=== PATIENT | female | born 1945 | race Caucasian/White ===

== ENCOUNTER 2017-07-12 10:03 | Emergency (ER) | payer MEDICARE ==
[2017-07-12 10:44] LABS: Bilirubin Negative (Negative); Blood, Urine Moderate (Negative); Clarity Slightly Cloudy (Clear); Glucose, Urine (Dipstick) 500 mg/dL (Negative); Leukocyte Moderate (Negative); Nitrite Positive (Negative); Protein, Urine (Dipstick) 100 mg/dL (Neg-Trace); Specific Gravity, Urine 1.015 (1.005-1.030)
[2017-07-12 10:49] LABS: Bacteria/HPF 4+ HPF (None Seen)
[2017-07-12 11:13] LABS: Band 8 % (5-11); Hemoglobin 10.3 g/dL (12.0-16.0); Lymphocytes 14 % (21-51); MDiff Complete? YES; Mean Corpuscular HGB CONC 32.4 g/dL (32.0-36.0); Mean Corpuscular Hemoglobin 29.5 pg (27.0-31.0); Mean Corpuscular Volume 91.2 fl (81.0-99.0); Mean Platelet Volume 6.8 fL (7.4-10.4); Monocytes 7 % (0-10); Neutrophil 71 % (42-75); PLT Morphology Comment Appears Adequate; Platelet Count 242 thou/uL (130-400); Red Blood Cell (RBC) Count 3.49 mill/uL (4.20-5.40); White Blood Cell (WBC) Count 9.8 thou/uL (4.8-10.8)
[2017-07-12 11:16] LABS: ALT (SGPT) 16 U/L (8-55); AST (SGOT) 20 U/L (5-34); Albumin 3.7 g/dL (3.4-4.8); Alkaline Phosphatase 80 U/L (40-150); Anion Gap 15 mmol/L (10-20); BUN (Urea Nitrogen) 9 mg/dL (9.8-20.1); Bilirubin, Total 0.4 mg/dL (0.2-1.2); Calc. Creatinine Clearance 0 mL/min (70-130); Calcium 9.3 mg/dL (7.8-10.44); Carbon Dioxide 26 mmol/L (23-31); Chloride 99 mmol/L (98-107); Estimated GFR-MDRD 60; Globulin 3.7 g/dL (2.4-3.5); Glucose 248 mg/dL (83-110); Lipase 5 U/L (8-78); Potassium 3.4 mmol/L (3.5-5.1); Protein, Total 7.4 g/dL (6.0-8.3); Sodium 137 mmol/L (136-145)
--- NOTE | 2017-07-12 11:23 | RAD ---
SINGLE VIEW OF CHEST: Date: 07/12/17 COMPARISON: 09/11/08. HISTORY: Right upper quadrant abdominal pain. FINDINGS: Single view of the chest shows a normal sized cardiomediastinal silhouette. There is no evidence of consolidation, mass, or pleural effusion. The bones are unremarkable. IMPRESSION: No evidence of acute cardiopulmonary disease. POS: [facility]
--- NOTE | 2017-07-12 11:59 | ULT ---
RIGHT UPPER QUADRANT ULTRASOUND: Date: 07/12/17 PROVIDED CLINICAL HISTORY: Right upper quadrant pain. FINDINGS: Comparison made with study dated 06/12/07. Visualized abdominal aorta, IVC, and pancreas appear normal. The liver demonstrates no mass or intra hepatic biliary ductal dilatation. The common duct is not dilated. The gallbladder demonstrates no s tones or pericholecystic fluid. The gallbladder is upper limits of normal. Sonographic Bah's sign documented as negative. The right kidney demonstrates no hydronephrosis or mass. IMPRESSION: No definite evidence for an acute process. POS: [facility]
[2017-07-12] MEDS ORDERED: Sulfameth/Trimethoprim DS 800-160mg TAB ONE (12:03)
[2017-07-12] MEDS ORDERED: Acetaminophen/Codeine 30-300mg Tablet ONE (12:03)
[2017-07-12] MEDS ORDERED: Ondansetron ODT 4 MG TAB ONE (12:03)
== END 2017-07-12 12:10 | disposition home or self-care (01) ==
LOC: MADERS 10:03
DX: N39.0 Urinary tract infection, site not specified (principal); E11.9 Type 2 diabetes mellitus without complications; Z79.4 Long term (current) use of insulin; Z79.899 Other long term (current) drug therapy
CPT/HCPCS: 71010; 76705; 80053; 81001; 82150; 83605; 83690; 85025; 87077; 87086; 87186; Q0162

== ENCOUNTER 2017-07-13 16:05 | Emergency (ER) | payer MEDICARE, OTHER ==
[2017-07-13] MEDS ORDERED: Mag-Al Plus 1200 MG/1200 MG/120 MG/30 ML UDCUP ONE (17:23)
--- NOTE | 2017-07-13 19:32 | RAD ---
KUB AND UPRIGHT: 07/13/17 HISTORY: Abdominal pain. The bowel gas pattern is nonobstructed. No signs of free air. There are arthritic changes of the spi ne. No renal calculi are seen. PA CHEST: Heart size and mediastinum are within normal limits. The lungs are clear of infiltrative process. IMPRESSION: No acute findings. POS: [facility]
== END 2017-07-13 18:30 | disposition home or self-care (01) ==
LOC: MADERS 16:05
DX: K29.70 Gastritis, unspecified, without bleeding (principal); N39.0 Urinary tract infection, site not specified; E11.9 Type 2 diabetes mellitus without complications; Z79.4 Long term (current) use of insulin; Z79.899 Other long term (current) drug therapy
CPT/HCPCS: 74022

== ENCOUNTER 2017-08-14 16:47 | Emergency (ER) | payer MEDICARE, OTHER ==
[2017-08-14 18:04] LABS: Bilirubin Negative (Negative); Blood, Urine Moderate (Negative); Clarity Cloudy (Clear); Glucose, Urine (Dipstick) Negative (Negative); Leukocyte Large (Negative); Nitrite Positive (Negative); Protein, Urine (Dipstick) 30 mg/dL (Neg-Trace); Specific Gravity, Urine 1.025 (1.005-1.030); Urobilinogen 0.2 mg/dL (0.2-1.0); pH, Urine 6.5 (5.0-9.0)
[2017-08-14 18:07] LABS: #Eosinphils 0.1 thou/uL (0.0-0.7); #Lymphocytes 1.9 thou/uL (1.20-3.40); #Monocytes 0.7 thou/uL (0.11-0.59); #Neutrophils 3.8 thou/uL (1.40-6.50); %Basophils 0.6 % (0.0-1.0); %Eosinophils 1.3 % (0.0-10.0); %Lymphocytes 28.6 % (21.0-51.0); %Monocytes 10.2 % (0.0-10.0); %Neutrophils 59.2 % (42.0-75.0); Hemoglobin 9.8 g/dL (12.0-16.0); Mean Corpuscular HGB CONC 34.1 g/dL (32.0-36.0); Mean Corpuscular Hemoglobin 31.1 pg (27.0-31.0); Mean Corpuscular Volume 91.2 fl (81.0-99.0); Mean Platelet Volume 7.2 fL (7.4-10.4); Platelet Count 352 thou/uL (130-400); RBC Distribution Width 14.1 % (11.5-14.5); Red Blood Cell (RBC) Count 3.16 mill/uL (4.20-5.40); White Blood Cell (WBC) Count 6.5 thou/uL (4.8-10.8)
[2017-08-14 18:11] LABS: PTT 32.6 SEC (22.9-36.1); Prothrombin Time 12.9 SEC (12.0-14.7)
[2017-08-14 18:17] LABS: Bacteria/HPF 4+ HPF (None Seen); Squamous Epithelial None Seen HPF (0-3)
[2017-08-14 18:22] LABS: ALT (SGPT) 22 U/L (8-55); AST (SGOT) 25 U/L (5-34); Albumin 3.9 g/dL (3.4-4.8); Alkaline Phosphatase 96 U/L (40-150); Anion Gap 16 mmol/L (10-20); BUN (Urea Nitrogen) 8 mg/dL (9.8-20.1); Bilirubin, Total 0.3 mg/dL (0.2-1.2); Calc. Creatinine Clearance 0 mL/min (70-130); Calcium 9.7 mg/dL (7.8-10.44); Carbon Dioxide 28 mmol/L (23-31); Chloride 96 mmol/L (98-107); Estimated GFR-MDRD 53; Globulin 3.7 g/dL (2.4-3.5); Glucose 223 mg/dL (83-110); Lipase 10 U/L (8-78); Potassium 3.9 mmol/L (3.5-5.1); Protein, Total 7.6 g/dL (6.0-8.3); Sodium 136 mmol/L (136-145)
[2017-08-14 18:24] LABS: Troponin I Less than 0.010 ng/mL (< 0.028)
--- NOTE | 2017-08-14 18:28 | RAD ---
TWO VIEW CHEST 08/14/17 HISTORY: Altered mental status. The lungs are clear. No infiltrate seen. Heart and mediastinum appear unremarkable. Osseous structure s are unremarkable with mild degenerative changes noted. IMPRESSION: No acute abnormality identified. POS: [facility]
[2017-08-14 18:29] LABS: Amphetamine Not Detected (NotDetected); Barbiturates Screen Not Detected (NotDetected); Benzodiazepine Screen Detected (NotDetected); Cocaine Metabolite Screen Not Detected (NotDetected); Medtox Control Line Valid? VALID (VALID); Methadone Not Detected (NotDetected); Methamphetamine Not Detected (NotDetected); Opiate Screen Detected (NotDetected); Oxycodone Screen Not Detected (NotDetected); Phencyclidine (PCP) Not Detected (NotDetected); THC/Cannabinoid Screen Not Detected (NotDetected); Tricyclic Screen Detected (NotDetected)
--- NOTE | 2017-08-14 18:32 | CT ---
CT HEAD WITHOUT CONTRAST 08/14/17 Multiple axial tomograms obtained through the head without IV enhancement. HISTORY: Mental status change. Ventricles have normal size and position. There are chronic ischemic white matter changes. There is a focal lucency in the anterior corpus callosum. There is periventricular white matter lucency adjacen t to the anterior right lateral ventricle suggesting chronic ischemic change. There is no evidence of acute mass, hemorrhage, or infarct. The sinuses and mastoids are well aerated . IMPRESSION: No evidence of acute process identified. POS: [facility]
[2017-08-14] MEDS ORDERED: Levofloxacin 500 mg/D5W 100 ml Premix Bag ONE (19:53)
== END 2017-08-14 21:15 | disposition short-term general hospital (02) ==
LOC: MADERS 16:47
DX: R41.82 Altered mental status, unspecified (principal); T48.1X5A Adverse effect of skeletal muscle relaxants [neuromuscular blocking agents], initial encounter; E11.9 Type 2 diabetes mellitus without complications; E03.9 Hypothyroidism, unspecified; E78.5 Hyperlipidemia, unspecified; F32.9 Major depressive disorder, single episode, unspecified; K21.9 Gastro-esophageal reflux disease without esophagitis; Z79.4 Long term (current) use of insulin; Z79.899 Other long term (current) drug therapy
CPT/HCPCS: 70450; 71020; 80053; 80306; 80307; 81003; 81015; 82553; 83605; 83690; 84443; 84484; 85025; 85610; 85730; 87077; 87086; 87186; 93005; 94760; 96374; J1956

== ENCOUNTER 2019-07-10 16:07 | Emergency (ER) | payer MEDICARE ==
--- NOTE | 2019-07-10 17:01 | CT ---
CT BRAIN WITHOUT CONTRAST: HISTORY: Trauma to the head. Patient on Plavix. Headache FINDINGS: Comparison is made with exam of 09/30/2017. Changes of mild chronic small vessel ischemic disease are again seen. No evidence of acute infarct, h emorrhage, midline shift or abnormal extra-axial fluid collections is seen. The ventricular size is appropriate and the basilar cisterns are patent. The bony calvarium is intact. The visualized paranas al sinuses and mastoid air cells are well aerated. There is soft tissue swelling in the left periorbital region. IMPRESSION: No CT evidence of acute intracranial process.
--- NOTE | 2019-07-10 17:16 | RAD ---
XR Humerus Lt 2 View STANDARD: 07/10/2019 4:29 PM CLINICAL INDICATION: Injury COMPARISON: None. FINDINGS: Fracture:Comminuted and displaced left humeral neck fracture is present Arthropathy:Mild scattered degenerative change Incidental findings:Calcification of the left axillary soft tissues. IMPRESSION: 1. Comminuted, mildly displaced left humeral neck fracture.
--- NOTE | 2019-07-10 17:23 | RAD ---
XR Forearm Lt 2 View STANDARD: 07/10/2019 4:27 PM CLINICAL INDICATION: Pain COMPARISON: None. FINDINGS: Fracture:No fracture. 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 IMPRESSION: 1. No acute osseous abnormality.
== END 2019-07-10 17:30 | disposition home or self-care (01) ==
LOC: MADERS 16:07
DX: S42.212A Unspecified displaced fracture of surgical neck of left humerus, initial encounter for closed fracture (principal); S00.93XA Contusion of unspecified part of head, initial encounter; E11.9 Type 2 diabetes mellitus without complications; E03.9 Hypothyroidism, unspecified; K21.9 Gastro-esophageal reflux disease without esophagitis; E78.5 Hyperlipidemia, unspecified; E78.00 Pure hypercholesterolemia, unspecified; F32.9 Major depressive disorder, single episode, unspecified; Z86.73 Personal history of transient ischemic attack (TIA), and cerebral infarction without residual deficits; Z79.899 Other long term (current) drug therapy; Z79.4 Long term (current) use of insulin; Z79.01 Long term (current) use of anticoagulants; W01.0XXA Fall on same level from slipping, tripping and stumbling without subsequent striking against object, initial encounter
CPT/HCPCS: 70450

== ENCOUNTER 2019-07-13 21:00 | Emergency (ER) | payer MEDICARE ==
--- NOTE | 2019-07-13 21:50 | RAD ---
EXAM: Single view of the chest HISTORY: Fever COMPARISON: 01/29/2018 FINDINGS: Single view of the chest shows a normal sized cardiomediastinal silhouette. There is no melina dence of consolidation, mass, or pleural effusion. The bones are unremarkable. IMPRESSION: No evidence of acute cardiopulmonary disease
[2019-07-13 22:09] LABS: #Lymphocytes 1.4 thou/uL (1.20-3.40); #Monocytes 0.7 thou/uL (0.11-0.59); #Neutrophils 5.8 thou/uL (1.40-6.50); %Basophils 0.6 % (0.0-1.0); %Eosinophils 0.6 % (0.0-10.0); %Monocytes 8.2 % (0.0-10.0); %Neutrophils 73.7 % (42.0-75.0); Hemoglobin 7.9 g/dL (12.0-16.0); Mean Corpuscular HGB CONC 32.6 g/dL (32.0-36.0); Mean Corpuscular Volume 79.7 fL (78.0-98.0); Mean Platelet Volume 6.9 fL (7.4-10.4); Platelet Count 239 thou/uL (130-400); RBC Distribution Width 14.8 % (11.5-14.5); Red Blood Cell (RBC) Count 3.02 mill/uL (4.20-5.40); White Blood Cell (WBC) Count 7.9 thou/uL (4.8-10.8)
[2019-07-13] MEDS ORDERED: Acetaminophen 500 MG TAB ONE (22:10)
[2019-07-13 22:23] LABS: ALT (SGPT) 11 U/L (8-55); AST (SGOT) 19 U/L (5-34); Albumin 3.8 g/dL (3.4-4.8); Alkaline Phosphatase 89 U/L (40-110); Anion Gap 15 mmol/L (10-20); BUN (Urea Nitrogen) 12 mg/dL (9.8-20.1); Bilirubin, Total 0.4 mg/dL (0.2-1.2); Calc. Creatinine Clearance 0 mL/min (70-130); Calcium 9.7 mg/dL (7.8-10.44); Carbon Dioxide 28 mmol/L (23-31); Chloride 97 mmol/L (98-107); Estimated GFR-MDRD 69; Potassium 3.2 mmol/L (3.5-5.1); Protein, Total 7.8 g/dL (6.0-8.3); Sodium 137 mmol/L (136-145)
[2019-07-13 22:28] LABS: Glucose 58 mg/dL (83-110)
[2019-07-13 22:41] LABS: Bilirubin Negative (Negative); Blood, Urine Moderate (Negative); Clarity Clear (Clear); Glucose, Urine (Dipstick) 100 mg/dL (Negative); Leukocyte Trace (Negative); Nitrite Negative (Negative); Protein, Urine (Dipstick) 100 mg/dL (Neg-Trace)
[2019-07-13 22:50] LABS: Squamous Epithelial 21-50 HPF (0-3)
[2019-07-13 22:51] LABS: Bacteria/HPF Rare-Few HPF (None Seen); Mucous/LPF None Seen LPF (<2+)
[2019-07-13] MEDS ORDERED: Sodium Chloride 0.9% 100 ML ONE (22:55)
[2019-07-13] MEDS ORDERED: cefTRIAXone\\ROCEPHIN 1 GM VIAL ONE (22:55)
== END 2019-07-14 00:01 | disposition home or self-care (01) ==
LOC: MADERS 21:00
DX: E11.649 Type 2 diabetes mellitus with hypoglycemia without coma (principal); R50.9 Fever, unspecified; E03.9 Hypothyroidism, unspecified; E78.5 Hyperlipidemia, unspecified; E78.00 Pure hypercholesterolemia, unspecified; K21.9 Gastro-esophageal reflux disease without esophagitis; F32.9 Major depressive disorder, single episode, unspecified; Z79.4 Long term (current) use of insulin; Z86.73 Personal history of transient ischemic attack (TIA), and cerebral infarction without residual deficits; Z79.899 Other long term (current) drug therapy
CPT/HCPCS: 36416; 71045; 80053; 81003; 81015; 83605; 85025; 87040; 87086; 87804; 96365; J0696; J3490

== ENCOUNTER 2019-08-15 14:39 | Emergency (ER) | payer MEDICARE ==
--- NOTE | 2019-08-15 16:01 | RAD ---
Exam:3 views left wrist HISTORY: Questionable distal radius fracture COMPARISON: None FINDINGS: Intercarpal and radiocarpal joint spaces are preserved. Degenerative changes of the first carpal metacarpal joint space. Previously suggested lucency along t he articular surface of the distal radius is not appreciated. No distal radius and ulna fracture. Mild bony mineralization is noted. IMPRESSION: No fracture.
--- NOTE | 2019-08-15 16:06 | RAD ---
PORTABLE CHEST ONE VIEW: 08/15/19 at 3:47 p.m. HISTORY: Altered mental status. FINDINGS: Comparison made with exam of 07/13/19. The heart size is normal. The lungs are well expanded without lobar consolidation, pneumothoraces, or pleural effusions. IMPRESSION: No radiographic evidence of acute cardiopulmonary process. POS: [facility]
--- NOTE | 2019-08-15 16:10 | RAD ---
LEFT HAND THREE VIEWS: 08/15/19 HISTORY: Swelling in the left hand. FINDINGS/IMPRESSION: There are degenerative changes most prominent at the first carpometacarpal joint. No fracture, disloc ation, or bony destruction seen. POS: [facility]
[2019-08-15 16:12] LABS: #Lymphocytes 1.1 thou/uL (1.20-3.40); #Monocytes 0.6 thou/uL (0.11-0.59); #Neutrophils 7.6 thou/uL (1.40-6.50); %Basophils 0.2 % (0.0-1.0); %Eosinophils 0.1 % (0.0-10.0); %Lymphocytes 11.9 % (21.0-51.0); %Monocytes 6.8 % (0.0-10.0); Hemoglobin 9.5 g/dL (12.0-16.0); Mean Corpuscular HGB CONC 30.7 g/dL (32.0-36.0); Mean Corpuscular Hemoglobin 25.6 pg (27.0-31.0); Mean Corpuscular Volume 83.5 fL (78.0-98.0); Mean Platelet Volume 6.3 fL (7.4-10.4); Platelet Count 247 thou/uL (130-400); RBC Distribution Width 15.8 % (11.5-14.5); Red Blood Cell (RBC) Count 3.71 mill/uL (4.20-5.40); White Blood Cell (WBC) Count 9.4 thou/uL (4.8-10.8)
[2019-08-15 16:13] LABS: Bilirubin Negative (Negative); Blood, Urine Moderate (Negative); Clarity Clear (Clear); Glucose, Urine (Dipstick) Negative (Negative); Leukocyte Negative (Negative); Nitrite Negative (Negative); Protein, Urine (Dipstick) 100 mg/dL (Neg-Trace); Urobilinogen 0.2 mg/dL (Less than 2)
[2019-08-15 16:19] LABS: Bacteria/HPF None Seen HPF (None Seen); Mucous/LPF Rare LPF (<2+); Squamous Epithelial 0-3 HPF (0-3); WBC/HPF 0-3 HPF (0-3)
[2019-08-15 16:28] LABS: ALT (SGPT) 13 U/L (8-55); AST (SGOT) 16 U/L (5-34); Albumin 3.7 g/dL (3.4-4.8); Alkaline Phosphatase 96 U/L (40-110); Anion Gap 14 mmol/L (10-20); BUN (Urea Nitrogen) 10 mg/dL (9.8-20.1); Bilirubin, Total 0.9 mg/dL (0.2-1.2); Calc. Creatinine Clearance 0 mL/min (70-130); Calcium 9.6 mg/dL (7.8-10.44); Carbon Dioxide 29 mmol/L (23-31); Chloride 95 mmol/L (98-107); Estimated GFR-MDRD 70; Glucose 166 mg/dL (83-110); Potassium 3.1 mmol/L (3.5-5.1); Protein, Total 7.7 g/dL (6.0-8.3); Sodium 135 mmol/L (136-145)
--- NOTE | 2019-08-15 16:53 | CT ---
Exam: CT cervical spine without contrast HISTORY: Trauma. Pain. COMPARISON: 09/30/2017 FINDINGS: No craniocervical dissociation. Appropriate alignment of the lateral masses of C1 and C2. Intact odon toid process Appropriate alignment of the facets. Straightening of normal cervical lordosis may be due to patient position, muscle spasm or cervical collar. Current study is not tailored to assess for ligamentous injury. Soft tissue neck structures: No mass, lymphadenopathy or hematoma. No prevertebral soft tissue swelli ng. Upper mediastinum and lung apices: Unremarkable Central spinal canal: Varying degrees of central canal stenosis and neural foraminal narrowing on the basis of degenerative change. Evaluation is limited by technique. Vertebral bodies: Cervical spine vertebral body height is maintained. No fracture. IMPRESSION: 1. No cervical spine fracture. 2. Straightening of normal cervical lordosis as described above. If there is concern for ligamentous injury, MRI of the cervical spine is recommended.
== END 2019-08-15 19:29 | disposition home or self-care (01) ==
LOC: MADERS 14:39
DX: S13.9XXA Sprain of joints and ligaments of unspecified parts of neck, initial encounter (principal); R50.9 Fever, unspecified; E11.9 Type 2 diabetes mellitus without complications; E03.9 Hypothyroidism, unspecified; K21.9 Gastro-esophageal reflux disease without esophagitis; E78.5 Hyperlipidemia, unspecified; E78.00 Pure hypercholesterolemia, unspecified; Z86.73 Personal history of transient ischemic attack (TIA), and cerebral infarction without residual deficits; F32.9 Major depressive disorder, single episode, unspecified; Z79.899 Other long term (current) drug therapy; Z79.4 Long term (current) use of insulin; W18.30XA Fall on same level, unspecified, initial encounter
CPT/HCPCS: 51701; 71045; 72125; 80053; 81003; 81015; 83605; 85025; 87086; 87804; 93005; A4353

== ENCOUNTER 2019-10-08 13:07 | Emergency (ER) | payer MEDICARE ==
[2019-10-08] MEDS ORDERED: Ketorolac Tromethamine 30 MG/ML VIAL ONE (13:55)
--- NOTE | 2019-10-08 14:15 | RAD ---
EXAM: 3 views of the right wrist HISTORY: Wrist pain COMPARISON: None FINDINGS: 3 views of the right wrist shows no evidence of acute fracture or dislocation. No soft tiss ue swelling is seen. Mild joint space narrowing is seen in the radiocarpal joint consistent with osteoarthritis. IMPRESSION: Mild right wrist osteoarthritis
[2019-10-08 14:23] LABS: Hemoglobin 8.3 g/dL (12.0-16.0); Mean Corpuscular Hemoglobin 25.1 pg (27.0-31.0); Mean Corpuscular Volume 81.8 fL (78.0-98.0); Red Blood Cell (RBC) Count 3.29 mill/uL (4.20-5.40)
[2019-10-08 14:24] LABS: #Lymphocytes 1.4 thou/uL (1.20-3.40); #Monocytes 0.4 thou/uL (0.11-0.59); #Neutrophils 5.1 thou/uL (1.40-6.50); %Basophils 0.3 % (0.0-1.0); %Eosinophils 0.2 % (0.0-10.0); %Lymphocytes 20.5 % (21.0-51.0); %Monocytes 6.2 % (0.0-10.0); %Neutrophils 72.9 % (42.0-75.0); Mean Corpuscular HGB CONC 30.7 g/dL (32.0-36.0); Mean Platelet Volume 6.3 fL (7.4-10.4); Platelet Count 255 thou/uL (130-400); RBC Distribution Width 16.2 % (11.5-14.5)
[2019-10-08 14:35] LABS: Anion Gap 15 mmol/L (10-20); BUN (Urea Nitrogen) 9 mg/dL (9.8-20.1); CRP (Inflammatory) 9.45 mg/dL (= or < 0.5); Calc. Creatinine Clearance 0 mL/min (70-130); Calcium 9.2 mg/dL (7.8-10.44); Carbon Dioxide 30 mmol/L (23-31); Chloride 94 mmol/L (98-107); Estimated GFR-MDRD 73; Glucose 333 mg/dL (83-110); Potassium 3.2 mmol/L (3.5-5.1); Sodium 136 mmol/L (136-145)
[2019-10-08] MEDS ORDERED: Morphine 4 MG/ML VIAL ONE (15:13)
== END 2019-10-08 15:35 | disposition home or self-care (01) ==
LOC: MADERS 13:07
DX: M13.131 Monoarthritis, not elsewhere classified, right wrist (principal); K21.9 Gastro-esophageal reflux disease without esophagitis; E78.5 Hyperlipidemia, unspecified; E78.00 Pure hypercholesterolemia, unspecified; E03.9 Hypothyroidism, unspecified; F32.9 Major depressive disorder, single episode, unspecified; E11.9 Type 2 diabetes mellitus without complications; Z86.73 Personal history of transient ischemic attack (TIA), and cerebral infarction without residual deficits; Z79.4 Long term (current) use of insulin; Z79.899 Other long term (current) drug therapy
CPT/HCPCS: 36415; 80048; 85025; 86140; 96372; J1885; J2270

== ENCOUNTER 2020-11-13 20:20 | Emergency (ER) | payer MEDICARE ==
[2020-11-13 16:09] LABS: #Lymphocytes 1.4 thou/uL (1.20-3.40); #Neutrophils 7.7 thou/uL (1.40-6.50); %Basophils 0.4 % (0.0-1.0); %Eosinophils 0.1 % (0.0-10.0); %Lymphocytes 13.7 % (21.0-51.0); %Monocytes 9.6 % (0.0-10.0); %Neutrophils 76.2 % (42.0-75.0); Hemoglobin 9.9 g/dL (12.0-16.0); Mean Corpuscular HGB CONC 32.4 g/dL (32.0-36.0); Mean Corpuscular Hemoglobin 26.2 pg (27.0-31.0); Mean Corpuscular Volume 80.7 fL (78.0-98.0); Mean Platelet Volume 6.6 fL (7.4-10.4); Platelet Count 272 thou/uL (130-400); RBC Distribution Width 13.8 % (11.5-14.5); Red Blood Cell (RBC) Count 3.77 mill/uL (4.20-5.40); White Blood Cell (WBC) Count 10.1 thou/uL (4.8-10.8)
--- NOTE | 2020-11-13 16:21 | RAD ---
Portable frontal chest radiograph: 11/13/2020 COMPARISON: 08/15/2019 HISTORY: Altered mental status FINDINGS: There is mild atherosclerotic calcification of the aortic arch. There is mild increased khalif ear interstitial density with stable mild pulmonary hyperinflation. There is no pneumothorax or pleural fluid and no focal consolidation or alveolar edema. IMPRESSION: No acute findings.
[2020-11-13 16:23] LABS: ALT (SGPT) 13 U/L (8-55); AST (SGOT) 15 U/L (5-34); Alkaline Phosphatase 99 U/L (40-110); Anion Gap 16 mmol/L (10-20); BUN (Urea Nitrogen) 13 mg/dL (9.8-20.1); Bilirubin, Total 0.6 mg/dL (0.2-1.2); Calc. Creatinine Clearance 0 mL/min (70-130); Calcium 9.5 mg/dL (7.8-10.44); Carbon Dioxide 30 mmol/L (23-31); Chloride 96 mmol/L (98-107); Globulin 4.1 g/dL (2.4-3.5); Magnesium 1.7 mg/dL (1.6-2.6); Protein, Total 8.1 g/dL (5.8-8.1); Sodium 139 mmol/L (136-145)
[2020-11-13 16:24] LABS: Glucose 44 mg/dL (83-110); Lipase Less than 4 U/L (8-78); Potassium 2.7 mmol/L (3.5-5.1)
--- NOTE | 2020-11-13 16:28 | CT ---
Head CT without contrast 11/13/2020: COMPARISON: 07/10/2019 HISTORY: Altered mental status TECHNIQUE: Axial CT imaging at 5 mm intervals from vertex through skull base without contrast FINDINGS: The visualized paranasal sinuses and mastoid air cells are well-aerated. No displaced zaida rial fracture. No intracranial hemorrhage, midline shift, mass effect, or ventricular enlargement. Detailed assessme nt is slightly limited secondary to head motion artifact. IMPRESSION: No intracranial hemorrhage or displaced calvarial fracture.
[2020-11-13 16:58] LABS: Bilirubin Negative (Negative); Blood, Urine Trace (Negative); Glucose, Urine (Dipstick) 100 mg/dL (Negative); Ketone, Urine Negative (Negative); Leukocyte Trace (Negative); Nitrite Negative (Negative); Protein, Urine (Dipstick) 30 mg/dL (Neg-Trace)
[2020-11-13 17:00] LABS: Clarity Hazy (Clear)
[2020-11-13 17:02] LABS: Bacteria/HPF 1+ HPF (None Seen); RBC/HPF 0-3 HPF (0-3); WBC/HPF 0-3 HPF (0-3)
[2020-11-13 19:32] LABS: SARS-CoV-2 NAA Rapid Test Not Detected (NotDetected)
[~2020-11-13 20:20] MED LIST: Acetaminophen 500 MG TAB ONE; Cefepime 2 GM VIAL ONE; D5 1/2 NS w/20 mEq KCL 1,000 ML ONE; Lidocaine 1% 20 ML MDV ONE; Potassium Bicarbonate/Cit Ac 20 MEQ TAB ONE; Sodium Chloride 0.9% 100 ML BAG ONE
[2020-11-13 21:59] LABS: Synovial Fluid, Protein 4.9 g/dL (Not Available)
[2020-11-13 22:39] LABS: RBC Count-Automated (BF) 0 /cu.mm; WBC/Nucleated-Auto (BF) 11283 uL
[2020-11-13 23:01] LABS: BF Color Yellow; Body Fluid Source Synovial Fluid; Clarity Cloudy/Turbid (Clear); Tube # EDTA
[2020-11-13 23:03] LABS: BF Segmented Neutrophils 66 %; Cell Count Non Hematic 33 %; Lymphocytes 1 %
== END 2020-11-13 20:38 | disposition short-term general hospital (02) ==
LOC: MADERS 20:38
DX: E11.649 Type 2 diabetes mellitus with hypoglycemia without coma (principal); E87.6 Hypokalemia; D64.9 Anemia, unspecified; E03.9 Hypothyroidism, unspecified; K21.9 Gastro-esophageal reflux disease without esophagitis; E78.5 Hyperlipidemia, unspecified; Z79.899 Other long term (current) drug therapy
CPT/HCPCS: 0240U; 70450; 71045; 80053; 82945; 82962; 83605; 83690; 83735; 84157; 85025; 87070; 87205; 89051; 89060; 93005; 94760; 20610; 36416; 81003; 81015; 85060; 96365; 96366; 96367; J0692; J3370; J3480; J3490; J7050

== ENCOUNTER 2023-07-28 13:56 | Emergency (ER) | payer MEDICARE ==
[2023-07-28] MEDS ORDERED: Sodium Chloride 0.9% 0 ML ONE (14:33)
[2023-07-28 15:14] LABS: Base Excess-Venous 1.7 mmol/L (-2.0 to 3.0); Bicarbonate (HCO3v) 24.8 mmol/L (22.0-28.0); CO2 Tension (PvCO2) 33.6 mmHg (42.0-51.0); Calcium, Ionized 1.17 mmol/L (1.15-1.33); Chloride 99 mmol/L (98-107); Hemoglobin - Calc 13.7 g/dL (12.0-16.0); Potassium 3.9 mmol/L (3.5-5.1); Sodium 133 mmol/L (138-145); T. Carbon Dioxide 25.8 mmol/L (22.0-28.0); vO2 Saturation-calc 99.8 % (60.0-85.0)
[2023-07-28 15:16] LABS: ALT (SGPT) 12 U/L (8-55); AST (SGOT) 16 U/L (5-34); Albumin 3.8 g/dL (3.4-4.8); Alkaline Phosphatase 137 U/L (40-110); Anion Gap 18 mmol/L (10-20); BUN (Urea Nitrogen) 15 mg/dL (9.8-20.1); Bilirubin, Total 0.3 mg/dL (0.2-1.2); Calc. Creatinine Clearance 0 mL/min (70-130); Calcium 9.7 mg/dL (7.8-10.44); Carbon Dioxide 22 mmol/L (23-31); Chloride 95 mmol/L (98-107); Estimated GFR 44; Lipase 113 U/L (8-78); Magnesium 1.6 mg/dL (1.6-2.6); Potassium 3.9 mmol/L (3.5-5.1); Protein, Total 7.8 g/dL (5.8-8.1); Sodium 131 mmol/L (136-145)
[2023-07-28 15:19] LABS: Eosinophils 1 % (0-10); Hematocrit 35.7 % (36.0-47.0); Hemoglobin 11.6 g/dL (12.0-16.0); Lymphocytes 15 % (21-51); MDiff Complete? YES; Manual Diff?? YES; Mean Corpuscular HGB CONC 32.6 g/dL (32.0-36.0); Mean Corpuscular Hemoglobin 32.4 pg (27.0-31.0); Mean Corpuscular Volume 99.3 fl (78.0-98.0); Mean Platelet Volume 7.9 fL (7.4-10.4); Monocytes 3 % (0-10); Neutrophil 65 % (42-75); Platelet Count 268 10x3/uL (130-400); RBC Distribution Width 13.2 % (11.5-14.5); Reactive Lymphocytes 16 % (0-10); Red Blood Cell (RBC) Count 3.59 mill/uL (4.20-5.40); White Blood Cell (WBC) Count 7.3 10x3/uL (4.8-10.8)
[2023-07-28 15:20] LABS: Platelet Adequacy Comment Appears Adequate
[2023-07-28 15:21] LABS: Glucose 491 mg/dL (83-110)
[2023-07-28] MEDS ORDERED: Insulin Regular 300 UNITS/3 ML VIAL ONE (15:31)
[2023-07-28 15:40] LABS: Bilirubin Negative (Negative); Blood, Urine Negative (Negative); Clarity Clear (Clear); Glucose, Urine (Dipstick) 500 mg/dL (Negative); Ketone, Urine Negative (Negative); Leukocyte Negative (Negative); Nitrite Negative (Negative); Protein, Urine (Dipstick) Negative (Neg-Trace); Specific Gravity, Urine 1.015 (1.005-1.030); Urobilinogen 0.2 mg/dL (Less than 2); pH, Urine 6.5 (5.0-9.0)
[2023-07-28 15:45] LABS: Bacteria/HPF Rare-Few HPF (None Seen); CAUTI Indications for Culture Dysuria,urgency,freq; RBC/HPF 0-3 HPF (0-3); Squamous Epithelial 0-3 HPF (0-3); WBC/HPF 0-3 HPF (0-3)
[2023-07-28 15:46] LABS: Urine Culture Reflex No No
[2023-07-28] MEDS ORDERED: Lactated Ringer's 2,000 ML ONE (16:11)
== END 2023-07-28 17:00 | disposition home or self-care (01) ==
LOC: MADERS 13:56
DX: E11.65 Type 2 diabetes mellitus with hyperglycemia (principal); K21.9 Gastro-esophageal reflux disease without esophagitis; E78.5 Hyperlipidemia, unspecified; E03.9 Hypothyroidism, unspecified; Z79.899 Other long term (current) drug therapy
CPT/HCPCS: 36416; 80053; 81001; 82010; 82330; 82803; 83690; 83735; 85025; 94760; 96360; J1815; J7050; J7120

== ENCOUNTER 2025-01-15 11:41 | Emergency (ER) | payer MEDICARE, OTHER ==
[2025-01-15] MEDS ORDERED: Lidocaine 4% Patch ONE (13:36)
== END 2025-01-15 13:54 | disposition home or self-care (01) ==
LOC: MADERS 11:41
DX: T38.3X1A Poisoning by insulin and oral hypoglycemic [antidiabetic] drugs, accidental (unintentional), initial encounter (principal); S22.31XA Fracture of one rib, right side, initial encounter for closed fracture; E11.9 Type 2 diabetes mellitus without complications; E03.9 Hypothyroidism, unspecified; Z79.4 Long term (current) use of insulin; Z79.890 Hormone replacement therapy; W19.XXXA Unspecified fall, initial encounter
CPT/HCPCS: 36416; 93005; 99284

== ENCOUNTER 2025-05-21 15:01 | Outpatient (CLI) | payer OTHER | END 2025-05-21 15:02 | disposition home or self-care (01) | LOC: MADLAB 15:01 | PROVIDERS: ATTEND Physician Assistant | DX: N39.0 Urinary tract infection, site not specified (principal) | CPT/HCPCS: 87077; 87086; 87186 ==

== ENCOUNTER 2025-07-02 14:39 | Emergency (ER) | payer OTHER ==
[2025-07-02] MEDS ORDERED: Iopamidol 370 76% 100 ML VIAL ONE (14:51)
[2025-07-02 15:38] LABS: #Basophils 0.1 thou/uL (0.0-0.2); #Eosinophils 0.0 thou/uL (0.0-0.7); #Lymphocytes 4.5 thou/uL (1.20-3.40); #Monocytes 0.8 thou/uL (0.11-0.59); #Neutrophils 8.8 thou/uL (1.40-6.50); %Basophils 0.7 % (0.0-1.0); %Eosinophils 0.0 % (0.0-10.0); %Lymphocytes 31.5 % (21.0-51.0); %Monocytes 5.9 % (0.0-10.0); %Neutrophils 61.9 % (42.0-75.0); Hematocrit 32.1 % (36.0-47.0); Hemoglobin 10.5 g/dL (12.0-16.0); Mean Corpuscular Hemoglobin 29.7 pg (27.0-31.0); Mean Corpuscular Volume 90.9 fl (78.0-98.0); Platelet Count 235 10x3/uL (130-400); Red Blood Cell (RBC) Count 3.53 mill/uL (4.20-5.40); White Blood Cell (WBC) Count 14.2 10x3/uL (4.8-10.8)
[2025-07-02 15:53] LABS: ALT (SGPT) 15 U/L (Less than 34); AST (SGOT) 28 U/L (11-34); Albumin 4.0 g/dL (3.1-4.5); Alkaline Phosphatase 76 U/L (40-110); Anion Gap 17 mmol/L (10-20); BUN (Urea Nitrogen) 17 mg/dL (9.8-20.1); Bilirubin, Total 0.8 mg/dL (0.3-1.2); Calc. Creatinine Clearance 0 mL/min (70-130); Calcium 9.6 mg/dL (7.8-10.44); Carbon Dioxide 23 mmol/L (23-31); Chloride 105 mmol/L (98-107); Globulin 3.7 g/dL (2.4-3.5); Glucose 162 mg/dL (83-110); Lipase 46 U/L (8-78); Potassium 4.0 mmol/L (3.5-5.1); Sodium 141 mmol/L (136-145)
[2025-07-02 15:54] LABS: Troponin I 0.032 ng/mL (< 0.028)
[2025-07-02 17:04] LABS: Glucose, Urine (Dipstick) Negative (Negative); Leukocyte Trace (Negative); Protein, Urine (Dipstick) Negative (Neg-Trace); Specific Gravity, Urine 1.015 (1.005-1.030)
[2025-07-02 17:09] LABS: CAUTI Indications for Culture Pelvic or flank pain; RBC/HPF 0-3 HPF (0-3)
[2025-07-02 17:10] LABS: Bacteria/HPF 1+ HPF (None Seen)
[2025-07-02 17:11] LABS: Urine Culture Reflex Yes Yes
[2025-07-02] MEDS ORDERED: metroNIDAZOLE 500 MG (100 mL) BAG ONE (17:20)
[2025-07-02] MEDS ORDERED: Ondansetron PF 4 MG/2 ML Vial ONE (17:20)
[2025-07-02] MEDS ORDERED: Cefepime 2 GM VIAL ONE (17:20)
[2025-07-02] MEDS ORDERED: Acetaminophen 325 MG TAB ONE (18:34)
[2025-07-02 19:34] LABS: Troponin I 0.020 ng/mL (< 0.028)
== END 2025-07-02 20:19 | disposition short-term general hospital (02) ==
LOC: MADERS 14:39
DX: K82.8 Other specified diseases of gallbladder (principal); R82.71 Bacteriuria; R00.0 Tachycardia, unspecified; R65.10 Systemic inflammatory response syndrome (SIRS) of non-infectious origin without acute organ dysfunction; E11.9 Type 2 diabetes mellitus without complications; Z79.4 Long term (current) use of insulin
CPT/HCPCS: 71045; 71275; 74174; 80053; 81001; 83605; 83690; 84484; 85025; 87040; 87077; 87086; 93005; 94760; 96361; 96365; 96367; 96375; J0692; J2270; J7120; Q9967

== ENCOUNTER 2025-07-17 12:03 | Outpatient (CLI) | payer OTHER | END 2025-07-17 12:04 | disposition home or self-care (01) | LOC: MADLAB 12:03 | PROVIDERS: ATTEND Physician Assistant | DX: N39.0 Urinary tract infection, site not specified (principal) | CPT/HCPCS: 87086 ==

== ENCOUNTER 2025-08-08 11:45 | Emergency (ER) | payer MEDICARE, OTHER ==
[2025-08-08 14:15] LABS: Glucose, Urine (Dipstick) 100 mg/dL (Negative); Leukocyte Large (Negative); Protein, Urine (Dipstick) 100 mg/dL (Neg-Trace); Specific Gravity, Urine 1.020 (1.005-1.030)
[2025-08-08 14:22] LABS: Bacteria/HPF 3+ HPF (None Seen); CAUTI Indications for Culture Pelvic or flank pain; Urine Culture Reflex Yes Yes; WBC/HPF Greater Than 50 HPF (0-3)
[2025-08-08] MEDS ORDERED: Lidocaine 1% PF 5 ML VIAL ONE (14:42)
[2025-08-08] MEDS ORDERED: cefTRIAXone (ROCEPHIN) 1 GM VIAL ONE (14:42)
== END 2025-08-08 15:05 | disposition home or self-care (01) ==
LOC: MADERS 11:45
DX: N39.0 Urinary tract infection, site not specified (principal); K21.9 Gastro-esophageal reflux disease without esophagitis; E78.5 Hyperlipidemia, unspecified; E11.9 Type 2 diabetes mellitus without complications; E05.90 Thyrotoxicosis, unspecified without thyrotoxic crisis or storm; Z79.899 Other long term (current) drug therapy; Z79.4 Long term (current) use of insulin; Z79.890 Hormone replacement therapy
CPT/HCPCS: 81001; 87086; J0696; 87077; 96372; 99284